=== PATIENT | female | born 1965 | race African-American/Black ===

== ENCOUNTER 2020-04-04 16:09 | Emergency (ER) | payer MEDICAID, OTHER ==
[~2020-04-04] VITALS: Ht 175.3 cm; Wt 78.2 kg
[~2020-04-04 16:09] MED LIST: ATOR20TA PO; CIPR-263 PO; OMEP20CA14 PO
[2020-04-04] MEDS ORDERED: SODIUM CHLORIDE 0.9% 1,000 ML IV ONE (16:30)
[2020-04-04] MEDS ORDERED: PROMETHAZINE/DEXTROMETHORPHAN 6.25-15MG/5ML BOTTLE 120ML PO STA (18:29)
[2020-04-04] MEDS ORDERED: KETOROLAC 15MG/ML VIAL IV ONE (18:30)
[2020-04-04] MEDS ORDERED: DEXAMETHASONE 4MG TABLET PO ONE (18:30)
[2020-04-04 19:03] LABS: CHLORIDE 105 mEq/L (98-107)
[2020-04-04 19:04] LABS: BASOPHILS % 0.2 % (0.0-2.0); EOSINOPHILS % 0.1 % (0.0-5.0); HEMATOCRIT. 38.4 % (36.0-48.0); HEMOGLOBIN. 12.8 g/dL (12.0-16.0); LYMPHOCYTES % 35.3 % (20.0-50.0); MEAN CORPUSCULAR HEMOGLOBIN 27.3 pg (28.0-32.0); MEAN CORPUSCULAR VOLUME 81.8 fL (81.0-99.0); MEAN PLATELET VOLUME 8.6 fl (7.4-10.4); MONOCYTES % 10.9 % (2.0-8.0); NEUTROPHILS % 53.5 % (40.0-76.0); PLATELET 174 x1000/uL (130-400); RED CELL DISTRIBUTION WIDTH 15.1 % (11.6-14.6)
[2020-04-04 20:01] VITALS: BP 121/65
== END 2020-04-04 20:30 | disposition home or self-care (01) ==
LOC: ER 16:09
DX: U07.1 COVID-19 (principal); J18.9 Pneumonia, unspecified organism; E87.6 Hypokalemia; E86.0 Dehydration; Z88.3 Allergy status to other anti-infective agents; Z88.0 Allergy status to penicillin
CPT/HCPCS: 36415; 71045; 80053; 85025; 93005; 96361; 96374; 99285; C9803; J1885; J7030; J8540; U0003